=== PATIENT | male | born 1965 | race Caucasian/White ===

== ENCOUNTER 2023-03-26 08:24 | Outpatient (CLI) | payer OTHER, SELFPAY ==
[2023-03-26 08:29] VITALS: BMI 30.3
--- NOTE | 2023-03-26 08:40 | NMCV_ITS ---
NM sergio perf SPECT r/s* [id number] Ray Valentin Age: 58 Gender: M : 1965 Exam Date: 03/26/2023 08:40 Ordering Phys: Kevon Coreas DO Technologist: PILAR Graves Exam Location: [facility] Indications: SHORTNESS OF BREATH ON EXERTION STRESS TEST Please see separate stress test report in [facility] for full findings IMAGE PROTOCOL Rest/Stress 1 Dobutamine Day Radiopharmaceutical Dose (mCi) Administration Site Administered by Rest: Tc-99m 10.5 IV PILAR Kennedy Sestamibi Stress:Tc-99m 32.4 IV PILAR Kennedy Sestamisindi Rest: 26-Mar-2023 60 Discovery 630 Stress: 26-Mar-2023 30 Discovery 630 Radiopharmaceutical was injected at 87 % maximum heart rate. Images obtained in supine and prone position. SPECT RESULTS Technical Quality: Excellent Raw Data Analysis: Normal Image Corrections: No attenuation or motion correction applied Summed Stress Score: 4 Summed Rest Score: 4 Summed Difference Score: 0 PERFUSION FINDINGS There is a small in size, fixed perfusion defect noted in septal wall. This is consistent with small sized prior infarct in LAD territory. No evidence of ischemia seen. FUNCTIONAL RESULTS (calculated via Gated SPECT) Stress Image LV EF (%): 50 Stress EDV (mL):107 TID: 1.1 Stress ESV (mL):54 FUNCTIONAL FINDINGS: There is normal left ventricular systolic function. IMPRESSIONS 1. Small sized prior infarct is seen in LAD territory. No evidence of ischemia 2. LV systolic function is normal Shravan Candelario MD (Electronically Signed) Final Date: 29 March 2023 09:01 S
--- NOTE | 2023-03-26 08:40 | ECG_ITS ---
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 Interpretive Statements NAME OF STUDY: DOBUTAMINE SESTAMIBI STRESS TEST INDICATION: [Dyspnea on Exertion] Dobutamine stress test: The patient had dobutamine infusion per protocol. Baseline blood pressure was 137/105 millimeters of mercury. Target heart rate was 137 beats per minute. Maximum heart rate achieved was 151, which was 110% of the target heart rate. Maximum blood pressure was 178/91 millimeters of mercury. Sestamibi was injected at 87% of maximum heart rate ELECTROCARDIOGRAM: BASELINE: Showed sinus rhythm, normal axis, no significant ST-T changes at the baseline noted. [] EXERCISE: At the peak heart rate, [] No significant ST-T changes suggestive of ischemia noted. [] RECOVERY: During the recovery period, heart rate dropped appropriately. No significant ST-T changes in the recovery suggestive of ischemia noted. [] CONCLUSION: 1. Heart rate response was appropriate. 2. Blood pressure response was appropriate. 3. Symptoms not suggestive of ischemia. 4. Electrocardiogram portion of the stress test was not suggestive of ischemia. 5. Nuclear scan will be documented separately. Electronically Signed On 04-08-2023 14:49:52 CDT by Shravan Candelario M.D. [email or web address]
[2023-03-26] MEDS: DOBUTtamine 200 MG in sodium chloride 0.9% 34 ML 12.79 MG IV (10:21)
[2023-03-26] MEDS: atropine 0.1 mg/mL Syr 10 mL 0.5 MG IVP (10:29)
[2023-03-26] MEDS: metoprolol tartrate 1 mg/1 mL SDV 5 mL 5 MG IV (10:34)
[2023-03-26 10:49] VITALS: BP 155/62; PULSE 93
== END 2023-03-26 08:25 | disposition home or self-care (01) ==
LOC: CDL 08:27
PROVIDERS: PCP Emergency Medicine Emergency Medical Services; Visit Provider Emergency Medicine Emergency Medical Services
DX: R06.09 Other forms of dyspnea (principal); I25.2 Old myocardial infarction
CPT/HCPCS: 36415; 78452; 93017; 96374; 96375; A9500; J0461; J1250; J3490; J7050